=== PATIENT | male | born 2000 | race African-American/Black ===

== ENCOUNTER 2024-02-27 08:51 | Emergency (ER) | payer OTHER ==
[~2024-02-27] VITALS: Ht 172.7 cm; Wt 85.4 kg
[2024-02-27 08:52] VITALS: BP 127/67; TEMP 97.5; O2SAT 99
== END 2024-02-27 09:41 | disposition home or self-care (01) ==
LOC: M ED 08:51
DX: U07.1 COVID-19 (principal)